=== PATIENT | female | born 1965 | race Two or more races ===

== ENCOUNTER 2019-08-10 11:15 | Emergency (ER) | payer MEDICAID ==
[~2019-08-10] VITALS: Ht 162.6 cm; Wt 81.6 kg
[2019-08-10 11:15] VITALS: BP 150/84
--- NOTE | 2019-08-10 11:15 | NUR ---
ED Nurse Note:PT brought in from grocery store for S/P ground level fall. pt reports hitting her head but denies LOC.
[2019-08-10] MEDS ORDERED: Ketorolac 60mg Inj IM ONE (11:30)
--- NOTE | 2019-08-10 11:30 | Emergency Room Report ---
History of Present Illness General Chief Complaint: Multiple Trauma/Fall Source: Patient Present Illness HPI Patient is a 53-year-old female who presents after increased left-sided hip pain and neck pain after a fall from standing. Patient reports having fallen in a grocery store. No loss of consciousness. Prior history of diabetes as well as hypertension. Denies any prior history of kidney disease or anticoagulant use. Injury occurred earlier this morning. Patient was brought in by ambulance. Reports have increased pain with ambulation. 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 Patient History Last Menstrual Period: na Reviewed Nursing Documentation: PMH: Agreed; PSxH: Agreed Nursing Documentation-PMH Past Medical History: No History, Except For Hx Hypertension: Yes Hx Diabetes: Yes Review of Systems All Other Systems: negative except mentioned in HPI Physical Exam Vital Signs Date Time Temp Pulse Resp B/P (MAP) Pulse Ox O2 Delivery O2 Flow Rate FiO2 08/10/19 11:12 98.1 100 18 146/77 (100) 98 Room Air Sp02 EP Interpretation: reviewed, normal General Appearance: normal inspection, alert, GCS 15, obese, Chronically Ill Head: atraumatic ENT: normal ENT inspection, hearing grossly normal, normal voice Neck: normal inspection, full range of motion, supple, no bony tend Respiratory: normal inspection, lungs clear, normal breath sounds, no respiratory distress, no retraction, no wheezing Cardiovascular #1: regular rate, rhythm, no edema Gastrointestinal: normal inspection, normal bowel sounds, non tender, soft, no guarding, no hernia Genitourinary: no CVA tenderness Musculoskeletal: normal inspection, back normal, normal range of motion Neurologic: alert, motor strength/tone normal, audio/visual operator III-XII nml as tested, responsive, speech normal, normal inspection Psychiatric: normal inspection, judgement/insight normal, mood/affect normal Medical Decision Making Diagnostic Impression: Primary Impression: Fall Additional Impressions: Low back pain Neck strain Contusion, hip ER Course Patient presented after a fall. Differential diagnosis include was not limited to contusion, cervical strain, pelvic fracture, lumbar strain among others. Because of complexity of patient's case laboratory tests and imaging studies were ordered. Patient was noted to have some increased pain after falling. CT imaging of the head read by radiology showed no evidence of acute fracture or intracranial hemorrhage CT of the cervical spine showed degenerative changes without evident fracture. CT of pelvis showed no evidence of fracture see radiology report for full details. Patient was advised to follow-up with her primary care physician for recheck. She was advised to return if worse patient given prescription for anti-inflammatory medication as well as muscle relaxants. She advised to return if worse. This medical record is generated with [employer] counter manager software. There may be some cosmetics counter manager discrepancies related to use of this software Last Vital Signs Date Time Temp Pulse Resp B/P (MAP) Pulse Ox O2 Delivery O2 Flow Rate FiO2 08/10/19 11:15 98 18 Room Air 08/10/19 11:15 98.1 150/84 98 Status: improved Disposition: HOME, SELF-CARE Condition: Stable Scripts Methocarbamol* (ROBAXIN-500*) 500 Mg Tablet 500 MG ORAL TID PRN for For Pain, #15 TAB 0 Refills Prov: Luke Kelly MD 08/10/19 Acetaminophen* (ACETAMINOPHEN EXTRA STRENGTH*) 500 Mg Tablet 500 MG ORAL Q8H PRN for Fever/Headache/Mild Pain, #30 TAB Prov: Luke Kelly MD 08/10/19 Luke Kelly MD Aug 10, 2019 11:30
[2019-08-10] MEDS ORDERED: Ketorolac 30mg Inj ONE (11:31)
--- NOTE | 2019-08-10 11:39 | NUR ---
ED Nurse Note: pt went to CT accompanied by tech.
--- NOTE | 2019-08-10 12:08 | NUR ---
ED Nurse Note: pt returned from CT, on stable condition.
--- NOTE | 2019-08-10 12:29 | Diagnostic Imaging Report ---
EXAM: CT Head Without Intravenous Contrast CLINICAL HISTORY: PAIN TECHNIQUE: Axial computed tomography images of the head/brain without intravenous contrast. CTDI is 53.4 mGy and DLP is 1033.0 mGy-cm. One or more of the following dose reduction techniques were used: automated exposure control, adjustment of the mA and/or kV according to patient size, use of iterative reconstruction technique. COMPARISON: None FINDINGS: Brain: No acute infarct or hemorrhage. No extra-axial fluid collection. No mass effect or midline shift. Probable small remote lacunar infarct in the left basal ganglia. Ventricles and sulci: Normal. No ventriculomegaly or intraventricular hemorrhage. Bones: Normal. No bony lesion or fracture. Subcutaneous tissues: Normal. Sinuses: Normal. No air-fluid levels or mucosal thickening. Mastoid air cells: Normal. Orbits: Grossly unremarkable. IMPRESSION: No acute intracranial abnormality.
--- NOTE | 2019-08-10 12:39 | Diagnostic Imaging Report ---
EXAM: CT Cervical Spine Without Intravenous Contrast CLINICAL HISTORY: PAIN TECHNIQUE: Axial computed tomography images of the cervical spine without intravenous contrast. CTDI is 16.1 mGy and DLP is 324 mGy-cm. One or more of the following dose reduction techniques were used: automated exposure control, adjustment of the mA and/or kV according to patient size, use of iterative reconstruction technique. COMPARISON: None FINDINGS: Bones: Straightening of the normal cervical lordosis. No acute fracture or bony lesion. Disc spaces: No subluxation. Mild degenerative changes of the spine. Soft tissues: Normal. Other: Heterogeneous thyroid could be further evaluated with nonemergent dedicated ultrasound if clinically indicated. IMPRESSION: No acute traumatic abnormality.
--- NOTE | 2019-08-10 12:42 | Diagnostic Imaging Report ---
EXAM: CT Pelvis Without Intravenous Contrast CLINICAL HISTORY: PAIN TECHNIQUE: Axial computed tomography images of the pelvis without intravenous contrast. CTDI is 13.9 mGy and DLP is 475.8 mGy-cm. One or more of the following dose reduction techniques were used: automated exposure control, adjustment of the mA and/or kV according to patient size, use of iterative reconstruction technique. COMPARISON: None FINDINGS: Bowel: Unremarkable. No obstruction. No mucosal thickening. Appendix: Normal appendix. Intraperitoneal space: Unremarkable. No free air. No significant fluid collection. Bladder: Unremarkable. No stones. Reproductive: Hypodense structure in the left adnexa may represent an ovarian cyst. Further evaluation could be performed with ultrasound if clinically indicated. Bones/joints: No acute fracture or dislocation. Soft tissues: Prior ventral hernia repair. Vasculature: Atherosclerotic changes of the vasculature. Phleboliths in the pelvis. No lower abdominal aortic aneurysm. Lymph nodes: Unremarkable. No enlarged lymph nodes. IMPRESSION: 1. No acute fracture or dislocation. 2. Hypodense structure in the left adnexa may represent an ovarian cyst. Further evaluation could be performed with ultrasound if clinically indicated.
[2019-08-10] MEDS ORDERED: ACETAMINOPHEN500 M3 ORAL (12:51)
[2019-08-10] MEDS ORDERED: ROBAXIN-500MG ORAL (12:51)
[2019-08-10 12:57] VITALS: BP 148/82
--- NOTE | 2019-08-10 12:58 | NUR ---
ER DISCHARGE NOTE: Patient is cleared to be discharged per ERMD, pt is aox4, on room air, with stable vital signs. pt was given dc and prescription instructions, pt was able to verbalize understanding, pt id band removed. pt is able to ambulate with steady gait. pt took all belongings.
== END 2019-08-10 13:06 | disposition home or self-care (01) ==
LOC: EDBD 11:15 → EMR 12:00
DX: S70.02XA Contusion of left hip, initial encounter (principal); S16.1XXA Strain of muscle, fascia and tendon at neck level, initial encounter; M54.5 Low back pain; W19.XXXA Unspecified fall, initial encounter; Y92.512 Supermarket, store or market as the place of occurrence of the external cause; E11.9 Type 2 diabetes mellitus without complications; I10 Essential (primary) hypertension; E66.9 Obesity, unspecified; Z68.30 Body mass index [BMI] 30.0-30.9, adult
CPT/HCPCS: 70450; 72125; 72192; 96372; 99284